=== PATIENT | female | born 1970 | race Caucasian/White ===

== ENCOUNTER → 2016-12-17 | Outpatient (CLI) | payer OTHER ==
[~2016-12-17] MED LIST: FIORICET1 CAP PO; PERCOCET 5/3251 EACH PO; TORADOL10 M1 PO; ZOLOFT100 MG PO
--- NOTE | 2016-12-18 21:53 | RADIOLOGY REPORT PS360 ---
DIG MAMM-SCREEN YULY W/CAD CAD Screening ORDERING PHYSICIAN : Geovany Stoner MD PATIENT AGE: 46 years GENDER: Female COMPARISON: Previous mammograms: March 2015, September 2012, April 2011 INDICATION: Routine screening does taking female hormones. No new complaints. Noncontributory family history. TECHNIQUE: Standard CC and MLO images were obtained. R2 CAD reviewed. Additional axillary cc right breast FINDINGS: Moderate breast density . Fibroglandular elements most evident towards upper-outer quadrant. No new areas of concern. Slight further regression of glandular tissue since 2012 Follow-up in one year adequate: IMPRESSION: Stable bilateral mammogram no significant new areas of concern . BI-RADS CATEGORY: 1_Negative RECOMMENDED FOLLOWUP: 12M 12 MONTH FOLLOW-UP (A letter has been sent to the patient regarding results of the study.)
== END ==
LOC: RAD 14:47
DX: Z12.31 Encounter for screening mammogram for malignant neoplasm of breast (principal)
CPT/HCPCS: G0202